=== PATIENT | female | born 1960 | race Two or more races ===

== ENCOUNTER 2018-07-23 13:11 | Outpatient (CLI) | payer MEDICAID, OTHER ==
[~2018-07-23] VITALS: Ht 152.4 cm; Wt 48.5 kg
[2018-07-23] MEDS ORDERED: OMEGA 3 1,0001 EACH PO (13:59)
[2018-07-23] MEDS ORDERED: METAMUCIL660 GM PO (13:59)
[2018-07-23] MEDS ORDERED: CALCIUM500 M2 PO (13:59)
[2018-07-23 14:11] VITALS: BP 120/76
--- NOTE | 2018-07-23 17:15 | Consultation ---
DATE OF CONSULTATION: 07/23/2018 CHIEF COMPLAINT: Rectal bleeding and rectal pain. HISTORY OF PRESENT ILLNESS: The patient is a 58-year-old female with past medical history of anxiety. No prior history of endoscopy and colonoscopy complained of some hemorrhoidal pain, was seen in Urgent Care recently, was given some cream for hemorrhoids but she says she is still having pain. She has also had constipation. PAST MEDICAL HISTORY: Anxiety, constipation. PAST SURGICAL HISTORY: Questionable polyp removed, we do not know from where. MEDICATIONS: Please see medication reconciliation list. ALLERGIES: Aspirin. FAMILY HISTORY: No family history of GI malignancies. SOCIAL HISTORY: The patient denies any tobacco, alcohol, or drug abuse. PHYSICAL EXAMINATION: VITAL SIGNS: Temperature 98.1, blood pressure 120/76, pulse is 90. HEENT: Normocephalic and atraumatic. Sclerae anicteric NECK: Supple. No evidence of lymphadenopathy. CARDIOVASCULAR: Regular rate and rhythm. Plus S1 and S2. No obvious murmur. LUNGS: Clear to auscultation bilaterally. ABDOMEN: Positive bowel sounds. Soft and nontender. No rebound. No guarding. No peritoneal sign. EXTREMITIES: No cyanosis, no clubbing, no edema. ASSESSMENT: 1. Constipation. 2. Hemorrhoidal bleeding and hemorrhoidal pain. 3. Screening colonoscopy evaluation. PLAN: The patient was given MiraLAX 17 g at bedtime. She was Anusol cream for the hemorrhoids. The patient was given instruction for colonoscopy. Pending authorization. Antoni Woodward M.D. DR: Jessica JOB#: [id number] CC:
== END 2018-07-23 15:40 | disposition home or self-care (01) ==
LOC: PAN 13:11
DX: K59.00 Constipation, unspecified (principal); K64.9 Unspecified hemorrhoids; K62.5 Hemorrhage of anus and rectum; F41.9 Anxiety disorder, unspecified; Z88.6 Allergy status to analgesic agent
CPT/HCPCS: 99202